=== PATIENT | female | born 1980 | race Caucasian/White ===

== ENCOUNTER → 2017-01-08 | Outpatient (CLI) | payer MEDICARE, OTHER ==
[~2017-01-08] VITALS: Ht 139.7 cm; Wt 104.5 kg
[2017-01-08 12:08] VITALS: BP 125/77
== END | disposition home or self-care (01) ==
LOC: SRCNTR 11:51
PROVIDERS: ATTEND Internal Medicine Critical Care Medicine
DX: G47.33 Obstructive sleep apnea (adult) (pediatric) (principal); E03.9 Hypothyroidism, unspecified; F41.1 Generalized anxiety disorder; Q90.9 Down syndrome, unspecified; Q99.8 Other specified chromosome abnormalities
CPT/HCPCS: G0463

== ENCOUNTER → 2017-03-10 | Outpatient (CLI) | payer MEDICARE, OTHER ==
[~2017-03-10] VITALS: Ht 139.7 cm; Wt 106.0 kg
[2017-03-10 10:14] VITALS: BP 127/78
== END | disposition home or self-care (01) ==
LOC: SRCNTR 09:56
PROVIDERS: ATTEND Internal Medicine Critical Care Medicine
DX: G47.33 Obstructive sleep apnea (adult) (pediatric) (principal); E03.9 Hypothyroidism, unspecified; F41.1 Generalized anxiety disorder; Q90.2 Trisomy 21, translocation
CPT/HCPCS: G0463

== ENCOUNTER → 2017-04-20 | Outpatient (CLI) | payer MEDICARE, OTHER | END | disposition home or self-care (01) | LOC: RADPV 10:27 | PROVIDERS: ATTEND General Practice | DX: C56.9 Malignant neoplasm of unspecified ovary (principal) | CPT/HCPCS: 76856 ==

== ENCOUNTER → 2017-07-15 | Outpatient (CLI) | payer MEDICARE, OTHER ==
[~2017-07-15] VITALS: Ht 139.7 cm; Wt 101.5 kg
[~2017-07-15] MED LIST: ALBU8HFA IH; LEVO150 PO; NORE-39 PO; SERT50TA12 PO; TIOT4MIS3 IH
[2017-07-15 12:39] VITALS: BP 110/69
== END | disposition home or self-care (01) ==
LOC: SRCNTR 12:20
PROVIDERS: ATTEND Internal Medicine Critical Care Medicine
DX: G47.33 Obstructive sleep apnea (adult) (pediatric) (principal); E03.9 Hypothyroidism, unspecified; F41.1 Generalized anxiety disorder; Q90.2 Trisomy 21, translocation; Z90.49 Acquired absence of other specified parts of digestive tract; J45.909 Unspecified asthma, uncomplicated
CPT/HCPCS: G0463

== ENCOUNTER → 2017-09-28 | Outpatient (CLI) | payer MEDICARE, OTHER ==
[2017-09-28 13:50] VITALS: BP 117/78
== END | disposition home or self-care (01) ==
LOC: SRCNTR 13:36
PROVIDERS: ATTEND Internal Medicine Critical Care Medicine
DX: G47.33 Obstructive sleep apnea (adult) (pediatric) (principal); E03.9 Hypothyroidism, unspecified; F41.1 Generalized anxiety disorder; Q90.2 Trisomy 21, translocation; J45.909 Unspecified asthma, uncomplicated; Z93.3 Colostomy status; Z90.49 Acquired absence of other specified parts of digestive tract
CPT/HCPCS: G0463

== ENCOUNTER → 2018-02-11 | Outpatient (CLI) | payer MEDICARE, OTHER ==
[~2018-02-11] VITALS: Ht 139.7 cm; Wt 108.0 kg
[~2018-02-11] MED LIST changes: +ELIDEL TP
[2018-02-11 11:51] VITALS: BP 131/83
== END | disposition home or self-care (01) ==
LOC: SRCNTR 11:48
PROVIDERS: ATTEND Internal Medicine Critical Care Medicine
DX: G47.33 Obstructive sleep apnea (adult) (pediatric) (principal); J45.909 Unspecified asthma, uncomplicated; E03.9 Hypothyroidism, unspecified; F41.1 Generalized anxiety disorder; Q90.2 Trisomy 21, translocation
CPT/HCPCS: G0463

== ENCOUNTER → 2018-07-28 | Outpatient (CLI) | payer MEDICARE, OTHER ==
[~2018-07-28] VITALS: Ht 139.7 cm; Wt 103.0 kg
[~2018-07-28] MED LIST changes: +LORA1TAB3 PO
[2018-07-28 15:14] VITALS: BP 128/78
== END | disposition home or self-care (01) ==
LOC: SRCNTR 15:09
PROVIDERS: ATTEND Internal Medicine Critical Care Medicine
DX: G47.33 Obstructive sleep apnea (adult) (pediatric) (principal); J45.909 Unspecified asthma, uncomplicated; F03.90 Unspecified dementia, unspecified severity, without behavioral disturbance, psychotic disturbance, mood disturbance, and anxiety; Q90.2 Trisomy 21, translocation; F41.1 Generalized anxiety disorder; E03.9 Hypothyroidism, unspecified
CPT/HCPCS: G0463

== ENCOUNTER → 2018-12-31 | Outpatient (CLI) | payer MEDICARE, OTHER ==
[~2018-12-31] VITALS: Ht 139.7 cm; Wt 104.5 kg
[2018-12-31 13:40] VITALS: BP 115/74
== END | disposition home or self-care (01) ==
LOC: SRCNTR 13:26
PROVIDERS: ATTEND Internal Medicine Critical Care Medicine
DX: J45.909 Unspecified asthma, uncomplicated (principal); G47.33 Obstructive sleep apnea (adult) (pediatric); Q90.9 Down syndrome, unspecified
CPT/HCPCS: G0463

== ENCOUNTER → 2019-10-13 | Outpatient (CLI) | payer MEDICARE, OTHER ==
[~2019-10-13] VITALS: Ht 147.3 cm; Wt 103.0 kg
[~2019-10-13] MED LIST changes: -ALBU8HFA IH; +CHOL500045 PO; +LORA-1000 PO; -LORA1TAB3 PO; -TIOT4MIS3 IH
[2019-10-13 09:26] VITALS: BP 107/69
== END | disposition home or self-care (01) ==
LOC: SRCNTR 09:12
PROVIDERS: ATTEND Internal Medicine Critical Care Medicine
DX: G47.33 Obstructive sleep apnea (adult) (pediatric) (principal); E03.9 Hypothyroidism, unspecified; F41.1 Generalized anxiety disorder; Z90.49 Acquired absence of other specified parts of digestive tract
CPT/HCPCS: G0463

== ENCOUNTER → 2020-01-19 | Outpatient (CLI) | payer MEDICARE, OTHER ==
[~2020-01-19] VITALS: Ht 147.3 cm; Wt 101.0 kg
[2020-01-19 11:02] VITALS: BP 109/46
== END | disposition home or self-care (01) ==
LOC: SRCNTR 10:54
PROVIDERS: ATTEND Internal Medicine Critical Care Medicine
DX: E03.9 Hypothyroidism, unspecified (principal); G47.33 Obstructive sleep apnea (adult) (pediatric); F41.1 Generalized anxiety disorder; Q90.2 Trisomy 21, translocation; E11.9 Type 2 diabetes mellitus without complications
CPT/HCPCS: G0463

== ENCOUNTER → 2021-04-12 | Outpatient (CLI) | payer MEDICARE, OTHER ==
[~2021-04-12] MED LIST changes: +SERT-158 PO; -SERT50TA12 PO
== END | disposition home or self-care (01) ==
LOC: RADMN 13:07
PROVIDERS: ATTEND Internal Medicine Critical Care Medicine
DX: M25.461 Effusion, right knee (principal); M25.462 Effusion, left knee; I82.409 Acute embolism and thrombosis of unspecified deep veins of unspecified lower extremity
CPT/HCPCS: 93970

== ENCOUNTER → 2021-04-12 | Outpatient (CLI) | payer MEDICARE, OTHER ==
[~2021-04-12] VITALS: Ht 142.2 cm; Wt 105.5 kg
[2021-04-12 11:16] VITALS: BP 118/78
== END | disposition home or self-care (01) ==
LOC: SRCNTR 10:46
PROVIDERS: ATTEND Internal Medicine Critical Care Medicine
DX: I10 Essential (primary) hypertension (principal); J45.909 Unspecified asthma, uncomplicated; G47.33 Obstructive sleep apnea (adult) (pediatric)
CPT/HCPCS: G0463

== ENCOUNTER → 2021-09-18 | Outpatient (CLI) | payer MEDICARE, OTHER ==
[~2021-09-18] VITALS: Ht 142.2 cm; Wt 105.6 kg
[2021-09-18 11:56] VITALS: BP 134/90
== END | disposition home or self-care (01) ==
LOC: SRCNTR 10:40
PROVIDERS: ATTEND Internal Medicine Critical Care Medicine
DX: G47.33 Obstructive sleep apnea (adult) (pediatric) (principal); E03.9 Hypothyroidism, unspecified; F41.1 Generalized anxiety disorder; Q90.2 Trisomy 21, translocation; F03.90 Unspecified dementia, unspecified severity, without behavioral disturbance, psychotic disturbance, mood disturbance, and anxiety; E66.9 Obesity, unspecified
CPT/HCPCS: G0463

== ENCOUNTER → 2021-12-13 | Outpatient (CLI) | payer MEDICARE, OTHER | END | disposition home or self-care (01) | LOC: RADMN 13:38 | PROVIDERS: ATTEND Internal Medicine Critical Care Medicine | DX: I51.7 Cardiomegaly (principal); R09.89 Other specified symptoms and signs involving the circulatory and respiratory systems; R05.9 Cough, unspecified | CPT/HCPCS: 71046 ==

== ENCOUNTER → 2021-12-25 | Outpatient (CLI) | payer MEDICARE, OTHER ==
[~2021-12-25] VITALS: Ht 142.2 cm; Wt 107.0 kg
[2021-12-25 12:14] VITALS: BP 130/73
== END | disposition home or self-care (01) ==
LOC: SRCNTR 10:57
PROVIDERS: ATTEND Internal Medicine Critical Care Medicine
DX: E03.9 Hypothyroidism, unspecified (principal); F41.1 Generalized anxiety disorder; M19.90 Unspecified osteoarthritis, unspecified site; E66.9 Obesity, unspecified; Q90.2 Trisomy 21, translocation; G30.0 Alzheimer's disease with early onset; F02.80 Dementia in other diseases classified elsewhere, unspecified severity, without behavioral disturbance, psychotic disturbance, mood disturbance, and anxiety
CPT/HCPCS: G0463; Z7500

== ENCOUNTER → 2022-01-10 | Outpatient (CLI) | payer MEDICARE, OTHER | END | disposition home or self-care (01) | LOC: RADPV 13:18 | PROVIDERS: ATTEND Internal Medicine Critical Care Medicine | DX: I50.1 Left ventricular failure, unspecified (principal) | CPT/HCPCS: 93306 ==

== ENCOUNTER → 2022-01-31 | Outpatient (CLI) | payer MEDICARE, MEDICAID | END | disposition home or self-care (01) | LOC: RADPV 13:05 | PROVIDERS: ATTEND General Practice | DX: K74.69 Other cirrhosis of liver (principal) | CPT/HCPCS: 76700 ==

== ENCOUNTER → 2022-04-03 | Outpatient (CLI) | payer MEDICARE, OTHER ==
[2022-04-03 11:56] VITALS: BP 102/43
== END | disposition home or self-care (01) ==
LOC: SRCNTR 11:37
PROVIDERS: ATTEND Internal Medicine Critical Care Medicine
DX: G47.33 Obstructive sleep apnea (adult) (pediatric) (principal); J45.909 Unspecified asthma, uncomplicated; Q90.9 Down syndrome, unspecified; F41.1 Generalized anxiety disorder; E03.9 Hypothyroidism, unspecified; E66.9 Obesity, unspecified
CPT/HCPCS: G0463

== ENCOUNTER → 2022-11-26 | Outpatient (CLI) | payer MEDICARE, OTHER ==
[~2022-11-26] VITALS: Ht 142.2 cm; Wt 97.0 kg
[2022-11-26 11:32] VITALS: BP 123/74
== END | disposition home or self-care (01) ==
LOC: SRCNTR 10:34
PROVIDERS: ATTEND Internal Medicine Pulmonary Disease
DX: Z09 Encounter for follow-up examination after completed treatment for conditions other than malignant neoplasm (principal); G47.33 Obstructive sleep apnea (adult) (pediatric); E03.9 Hypothyroidism, unspecified; F41.1 Generalized anxiety disorder; F03.90 Unspecified dementia, unspecified severity, without behavioral disturbance, psychotic disturbance, mood disturbance, and anxiety; E66.9 Obesity, unspecified; Q90.9 Down syndrome, unspecified; Q90.2 Trisomy 21, translocation
CPT/HCPCS: G0463; Z7500